=== PATIENT | male | born 1965 | race Caucasian/White ===

== ENCOUNTER 2025-08-04 09:53 | Day surgery (SDC) | payer OTHER ==
[~2025-08-04] VITALS: Ht 180.3 cm; Wt 92.3 kg
[~2025-08-04 09:53] MED LIST: ASPI-1444 PO; BUPIVACAINE/EPI/PF 0.5% 30 ML VIAL ONE; RINGERS SOLUTION,LACTATED 1,000 ML IV ONE; TAMS0.4C94 PO
[2025-08-04] MEDS ORDERED: SUGAMMADEX SODIUM 200 MG/2 ML VIAL IVP ONE (09:54)
[2025-08-04] MEDS ORDERED: ACETAMINOPHEN/ISO-OSM 1000 MG/100 ML BOTTLE IV ONE (09:54)
[2025-08-04] MEDS ORDERED: LIDOCAINE/PF 2% 5 ML VIAL IM ONE (09:54)
[2025-08-04] MEDS ORDERED: 0.9% SODIUM CHLORIDE 10 ML VIAL IV ONE (09:54)
[2025-08-04] MEDS ORDERED: PROPOFOL 1% 20 ML VIAL IVP ONE (09:54)
[2025-08-04] MEDS ORDERED: ONDANSETRON HCL 4 MG/2 ML VIAL IVP ONE (09:54)
[2025-08-04] MEDS ORDERED: MIDAZOLAM HCL 2 MG/2 ML VIAL IVP ONE (09:54)
[2025-08-04] MEDS ORDERED: FentaNYL CITRATE PF 100 MCG/2 ML VIAL IM ONE (09:54)
[2025-08-04] MEDS ORDERED: MORPHINE SULFATE 4 MG/ML VIAL IVP ONE (09:54)
[2025-08-04] MEDS ORDERED: DEXAMETHASONE SOD PHOS 4 MG/ML VIAL IVP ONE (09:54)
[2025-08-04] MEDS ORDERED: ROCURONIUM BROMIDE 10 MG/ML 5 ML VIAL IV ONE (09:54)
[2025-08-04 10:26] LABS: PLATELET COUNT (AUTO) 204 K/uL (150-450); RED BLOOD CELL COUNT(AUTO) 4.52 MIL/uL (4.50-5.90); RED CELL DISTRIBUTION WIDTH 14.2 % (11.5-14.5); WHITE BLOOD COUNT (AUTO) 5.3 K/uL (4.5-11.0)
[2025-08-04] MEDS: CHLORHEXIDINE GLUCONATE 2% TOWELETTE [2'S/6'S] TP ONE (10:28)
[2025-08-04] MEDS: ETHYL ALCOHOL 62% ANTISEPTIC NASAL SANITIZER 0.6 ML AMPUL NASAL ONE (10:28)
[2025-08-04] MEDS: RINGERS SOLUTION,LACTATED 1,000 ML IV ONE (10:35)
[2025-08-04 10:40] LABS: CALCIUM, TOTAL 8.6 mg/dL (8.8-10.5); CREATININE 0.64 mg/dL (0.60-1.30); GLOMERULAR FILTR. RATE CALC > 60 mL/min (>60); GLUCOSE,RANDOM 95 mg/dL (70-110); SODIUM SERUM 139 mmol/L (136-145); UREA NITROGEN, BLOOD 17 mg/dL (7-18)
[2025-08-04] MEDS ORDERED: BUPIVACAINE HCL/PF 0.25% 30 ML VIAL ONE (11:33)
[2025-08-04] MEDS ORDERED: BUPIVACAINE/EPI/PF 0.5% 30 ML VIAL ONE (11:55)
[2025-08-04] MEDS ORDERED: OxyCODONE HCL/ACETAMINOPHEN 5-325 MG TABLET ONE (13:49)
[2025-08-04] MEDS: OxyCODONE HCL/ACETAMINOPHEN 5-325 MG TABLET PO ONE (14:18)
[2025-08-04] MEDS: BUPIVACAINE LIPOSOME/PF 1.3%-13.3MG/ML SUSP 20 ML VIAL INJ ONE (14:33)
== END 2025-08-04 14:50 | disposition home or self-care (01) ==
LOC: SDS 09:53
PROVIDERS: ATTEND Specialist
DX: M75.41 Impingement syndrome of right shoulder (principal); M65.811 Other synovitis and tenosynovitis, right shoulder; M75.111 Incomplete rotator cuff tear or rupture of right shoulder, not specified as traumatic; M19.011 Primary osteoarthritis, right shoulder; Z79.01 Long term (current) use of anticoagulants; Z79.899 Other long term (current) drug therapy; Z72.89 Other problems related to lifestyle; Z98.890 Other specified postprocedural states
CPT/HCPCS: 29824; 80048; 85025; 85610; 85730; 36415; 29826; J0666; J3490 ×5; J2704; J0690; J1100; J3010; J2250; J2270; J2405; J7120; J0131